=== PATIENT | male | born 1990 | race Caucasian/White ===

== ENCOUNTER 2017-07-18 03:28 | Emergency (ER) | payer SELFPAY, OTHER ==
[2017-07-18] MEDS: LIDOCAINE 1% (MDV) 20 ML INJ SC (06:00)
[2017-07-18] MEDS: FENTAnyl 50 MCG/ML VIAL IV (06:03)
[2017-07-18] MEDS: SOD CHLORIDE 0.9% 1,000 ML IV (07:44)
== END 2017-07-18 08:40 | disposition home or self-care (01) ==
LOC: E/R 03:28
DX: S02.32XA Fracture of orbital floor, left side, initial encounter for closed fracture (principal); S16.1XXA Strain of muscle, fascia and tendon at neck level, initial encounter; S02.2XXG Fracture of nasal bones, subsequent encounter for fracture with delayed healing; S06.0X0A Concussion without loss of consciousness, initial encounter; R07.9 Chest pain, unspecified; Y08.89XA Assault by other specified means, initial encounter
CPT/HCPCS: 12011; 70450; 70486; 71045; 72125; 99285-25